=== PATIENT | female | born 1985 | race African-American/Black ===

== ENCOUNTER 2020-01-27 19:05 | Emergency (ER) | payer OTHER, SELFPAY ==
--- NOTE | ~2020-01-27 | XR_ITS ---
EXAMINATION: XR toe 5th LT min 2V DATE: 01/27/2020 19:27 INDICATION: Left fifth toe pain post injury 3 weeks prior. TECHNIQUE: Dorsal plantar, lateral and 2 oblique views of the left fifth were obtained. COMPARISON: None FINDINGS: Nondisplaced transverse fracture across a small sesamoid bone plantar to the head of the fifth metata rsal. Bone alignment is otherwise normal. No other fractures identified. Joint spaces are normal. IMPRESSION: Nondisplaced transverse fracture across the fifth metatarsal sesamoid. Reviewed, dictated and finalized at [facility]. TECHNICIAN IMPRESSION: Nondisplaced transverse fracture across the fifth metatarsal sesamo id.
[2020-01-27 19:16] VITALS: BP 120/68; PULSE 84; RESP 16; TEMP 37.3; O2SAT 99
--- NOTE | 2020-01-27 19:20 | ED.GENADULT ---
HPI - General Adult General Chief complaint: Extremity Injury, Lower Stated complaint: left pinky toe injury Time Seen by Provider: 01/27/20 19:21 Source: patient Mode of arrival: ambulatory Limitations: no limitations History of Present Illness HPI narrative: 34-year-old female patient presents to the [facility] with complaints of left pinky toe pain x3 weeks. Patient states that she has stubbed it twice about 3 weeks ago. Patient states that the pain continues to worsen and states that most of the pain is and at the base of the pinky toe. Patient states she has been able to walk on it but when she went to go and try to put a boot on today she was having too much pain and was not able to put the boot on. Patient states she had a little bit of swelling to the area when it first happened but she has been taking Tylenol for the pain. Related Data Home Medications Medication Instructions Recorded Confirmed aripiprazole mg 01/27/20 Allergies Allergy/AdvReac Type Severity Reaction Status Date / Time No Known Allergies Allergy Unknown Verified 06/16/18 18:18 Review of Systems Review of Systems: Narrative: CONSTITUTIONAL: Denies fever, chills, or sweats. EYES: Denies visual changes, redness, or discharge. ENT: Denies rhinorrhea, congestion, sore throat, or otalgia. CARDIOVASCULAR: Denies chest pain, palpitations, or edema. RESPIRATORY: Denies cough or dyspnea. GASTROINTESTINAL: Denies abdominal pain, nausea, vomiting, or diarrhea. GENITOURINARY: Denies dysuria or hematuria. SKIN: Denies rash or itching. MUSCULOSKELETAL: Denies back pain, joint pain, or myalgia. Positive left pinky toe pain NEUROLOGIC: Denies headache, numbness, or weakness. PSYCHIATRIC: Denies anxiety or depression. [facility] Past Medical History Medical History (Updated 01/27/20 @ 19:50 by ABBE Watters) Asthma Cardiac disorder Leaky valve Pulmonary embolism Surgical History Surgical History (Updated 01/27/20 @ 19:22 by ABBE Watters) Delivery by section H/O inguinal hernia repair Comments At the time of my signature I agree with nursing past medical history, surgical, social, and family history. There is no relevant family history pertinent to the presenting complaint. Exam Narrative: Exam Narrative: GENERAL: Well-appearing, well-nourished, and in no acute distress. HEAD: Normocephalic, atraumatic. EYES: PERRLA and EOMI. ENT: Nares clear, no rhinorrhea or epistaxis. Mucous membranes moist. NECK: Supple. No lymphadenopathy CHEST: Clear to auscultation. No respiratory distress. HEART: Regular rate and rhythm. No murmur heard. Normal peripheral pulses. ABDOMEN: Soft, nontender, nondistended, normal active bowel sounds. EXTREMITIES: Patient able to bear weight and ambulate without pain. No surface trauma, ecchymosis, erythema, lesions, ulcers or break in skin integrity. The L foot is without obvious asymmetry or deformity when compared to the R foot. No bony step-off, tender to palpation over the left fifth toe, no pain on palpation to the midfoot or hindfoot or sole. Normal plantar/dorsiflexion, inversion/eversion. Distal motor and neurovascular status are intact SKIN: Warm, dry, no rash. NEURO: No focal deficits. Alert and oriented x3. Course Reevaluation(s) Reevaluation #1: Reevaluated patient after x-ray resulted. Discussed with her that does appear that she has a little bit of a fracture to the left pinky toe. Discussed with her we will go ahead and fit her for a postop shoe and refer her to Ortho for further follow-up. Advised him to ice it, elevate it and trying keep off it is much as possible may take Tylenol and ibuprofen as needed for pain. Patient verbalized understanding of this denies any other questions or concerns at this time. Date: 01/27/20 Time: 19:52 Vital Signs Vital signs: Vital Signs Temperature 37.3 C 01/27/20 19:16 Pulse Rate 84 01/27/20 19:16 Respiratory Rate 16 01/27/20 19:16 Blood
== END 2020-01-27 20:03 | disposition home or self-care (01) ==
PROVIDERS: Emergency Provider Nurse Practitioner Family
DX: S92.355A Nondisplaced fracture of fifth metatarsal bone, left foot, initial encounter for closed fracture (principal); W22.8XXA Striking against or struck by other objects, initial encounter; J45.909 Unspecified asthma, uncomplicated; Z86.711 Personal history of pulmonary embolism
CPT/HCPCS: 73660; 99214; G0463

== ENCOUNTER 2021-08-24 09:52 | Emergency (ER) | payer OTHER, SELFPAY ==
--- NOTE | ~2021-08-24 | XR_ITS ---
XR abdomen/kub 1V 08/24/2021 10:28 INDICATION: Possible kidney stones TECHNIQUE: KUB COMPARISON: None FINDINGS: Bowel gas pattern is normal. There is no evidence of free air, mass, organomegaly, ascites or obstruction. No abnormal calculi are seen. The bones appear intact. IMPRESSION: 1: No acute abdominal abnormality identified. Reviewed, dictated and finalized at location A.
[2021-08-24 10:01] VITALS: BP 131/86; PULSE 74; RESP 18; TEMP 36.6; O2SAT 100
--- NOTE | 2021-08-24 10:10 | ED.FEMALEGU ---
HPI - Female Genitourinary General Chief complaint: Urogenital-Female Stated complaint: UTI Time Seen by Provider: 08/24/21 10:10 Source: patient Mode of arrival: ambulatory Limitations: no limitations History of Present Illness HPI Narrative: 36-year-old female presents with complaint of urinary frequency, urgency, dysuria, low back pain, suprapubic pain for 2 days. Denies fever or chills. States that she did feel nauseated this morning. States her period just ended. No history of kidney stones. Has been drinking a lot of water since symptoms started. Is concerned that she has urinary tract infection. All systems reviewed and negative except as noted above. Related Data Home Medications Medication Instructions Recorded Confirmed albuterol sulfate 90 mcg/actuation 90 mcg inhalation DIRECTED 08/24/21 08/24/21 aerosol inhaler Allergies Allergy/AdvReac Type Severity Reaction Status Date / Time No Known Allergies Allergy Unknown Verified 06/16/18 18:18 Review of Systems Review of Systems: CONSTITUTIONAL: Denies fever, chills, or sweats. EYES: Denies visual changes, redness, or discharge. ENT: Denies rhinorrhea, congestion, sore throat, or otalgia. CARDIOVASCULAR: Denies chest pain, palpitations, or edema. RESPIRATORY: Denies cough or dyspnea. GASTROINTESTINAL: Denies abdominal pain, nausea, vomiting, or diarrhea. GENITOURINARY: Reports dysuria, frequency, urgency, low back pain, suprapubic pain. Denies hematuria. SKIN: Denies rash or itching. MUSCULOSKELETAL: Denies back pain, joint pain, or myalgia. NEUROLOGIC: Denies headache, numbness, or weakness. PSYCHIATRIC: Denies anxiety or depression. All other systems reviewed are negative, except as documented in HPI. [facility] Past Medical History Medical History (Updated 08/24/21 @ 10:38 by Estrella Cortez NP) Asthma Cardiac disorder Leaky valve Pulmonary embolism Surgical History Surgical History (Updated 01/27/20 @ 19:22 by ABBE Watters) Delivery by section H/O inguinal hernia repair Comments At time of signature, agree with nursing past medical, surgical, social and family history. There is no relevant family history pertinent to the presenting complaint. Exam Narrative: GENERAL: This is a well-nourished, well-developed patient, in no apparent distress. HEAD: normocephalic, atraumatic. EYES: PERRL. Sclera clear/white. Vision is grossly intact. EARS: External ears normal NOSE: External nose normal NECK: Neck supple, non-tender without lymphadenopathy, masses or thyromegaly. CARDIOVASCULAR: Regular rate and rhythm without murmurs, gallops, or rubs. RESPIRATORY: Clear to auscultation. Breath sounds equal bilaterally. No wheezes, rales, or rhonchi. GASTROINTESTINAL: Abdomen soft, non-tender, nondistended. Bowel sounds are active. No hepato-splenomegaly, or palpable masses. No guarding. SKIN: warm, Dry, intact with no suspicious lesions or rash, good texture and turgor. NEURO: awake, alert, and oriented to person, place and time. There were no obvious focal neurologic abnormalities. EXTREMITIES: No joint tenderness, effusion, or edema noted. BACK: No CVA tenderness. Course Course Level of Care: Express Care Visit Vital Signs Vital signs: Vital Signs Temperature 36.6 C 08/24/21 10:01 Pulse Rate 74 08/24/21 10:01 Respiratory Rate 18 08/24/21 10:01 Blood Pressure 131/86 08/24/21 10:01 Pulse Oximetry 100 08/24/21 10:01 Oxygen Delivery Room Air 08/24/21 10:01 Temperature 36.6 C 08/24/21 10:01 Pulse Rate 74 08/24/21 10:01 Respiratory Rate 18 08/24/21 10:01 Blood Pressure 131/86 08/24/21 10:01 Pulse Oximetry 100 08/24/21 10:01 Oxygen Delivery Room Air 08/24/21 10:01 Reviewed MDM - Female Genitourinary MDM Narrative Medical decision making narrative: Patient is aware of diagnosis, understands and agrees to treatment plan. Anticipatory guidance given. Patient agrees to fo
== END 2021-08-24 10:46 | disposition home or self-care (01) ==
PROVIDERS: Emergency Provider Nurse Practitioner Family
DX: N39.0 Urinary tract infection, site not specified (principal); J45.909 Unspecified asthma, uncomplicated; Z86.711 Personal history of pulmonary embolism
CPT/HCPCS: 74018; 81003; 81025; 87086; 87088; 87147; 99213; G0463

== ENCOUNTER 2021-11-07 13:40 | Emergency (ER) | payer OTHER, SELFPAY ==
--- NOTE | ~2021-11-07 | XR_ITS ---
XR ankle RT min 3V DATE: 11/07/2021 13:59 INDICATION: Patient fell and twisted right ankle. Swelling. TECHNIQUE: 4 views COMPARISON: None FINDINGS: There is mild to moderate lateral soft tissue swelling. No fracture or dislocation of the a nkle or disruption of the ankle mortise is detected. No periosteal reaction or bone destruction. IMPRESSION: Mild to moderate lateral soft tissue swelling Reviewed, dictated and finalized at location B.
[2021-11-07 13:50] VITALS: BP 126/76; PULSE 79; RESP 16; TEMP 37.4; O2SAT 100
--- NOTE | 2021-11-07 13:59 | ED.LOWEXIN ---
HPI - Extremity Injury (Lower) General Chief Complaint: Extremity Injury, Lower Stated Complaint: Injury to right ankle Time Seen by Provider: 11/07/21 14:00 Source: patient, RN notes reviewed and old records reviewed Mode of arrival: ambulatory Limitations: no limitations History of Present Illness HPI Narrative: 36-year-old female presents to the [facility] with complaints of right ankle pain. States 2 nights ago she rolled her ankle. Minor swelling noted laterally. Positive pedal pulse. Sensation intact in all 5 toes. Good range of motion with some discomfort. Related Data Allergies Allergy/AdvReac Type Severity Reaction Status Date / Time No Known Allergies Allergy Unknown Verified 11/07/21 13:50 Review of Systems Review of Systems: All systems reviewed & are unremarkable except as noted in HPI and below Constitutional: Constitutional: Reports no additional constitutional complaints, Denies chills and Denies fever(s) Eyes: Eyes: Reports no additional eye complaints ENT: Reports system reviewed and no additional complaints, except as documented Cardiovascular: Cardiovascular: Reports no additional cardiovascular complaints Respiratory: Respiratory: Reports no additional respiratory complaints Gastrointestinal: Gastrointestinal: Reports no additional gastrointestinal complaints Musculoskeletal: Musculoskeletal: Reports as per HPI, Reports arthralgias and Reports joint swelling Integumentary/Breasts: Skin/Breast: Reports system reviewed and no additional complaints, except as docu Neurologic: Reports system reviewed and no additional complaints, except as documented Psychiatric: Psychiatric: Reports no additional psychiatric complaints Allergic/Immunologic: Allergic/Immunologic: Reports no additional allergic/immunologic complaints [facility] Past Medical History Medical History Asthma Cardiac disorder Leaky valve Pulmonary embolism Surgical History Surgical History Delivery by section H/O inguinal hernia repair Comments At the time of my signature, I reviewed and agree with the nursing past medical, surgical, social, and family history. There is no relevant family history pertinent to the patient complaint. Exam Const: General: healthy appearing, no acute distress and alert Nutritional Appearance: well nourished Orientation/consciousness: patient oriented x3 Limitations: no limitations HENMT: Head: normal to inspection Ears: external ears normal Eyes: General: appearance normal, both eyes and all related structures Pupils: Equal, round and reactive pupils present Neck: Neck: normal visual inspection, no lymphadenopathy and no meningeal signs Chest: Chest palpation & inspection: normal inspection of the chest Resp: Effort & Inspection: normal respiratory effort and no use of accessory muscles Auscultation: clear to auscultation bilaterally, no crackles, no rales, no rhonchi and no wheezes Cardio: Rate: regular rate Rhythm: regular rhythm GI: GI Palp: Yes Soft to palpation and No Tenderness to palpation present (GI) Back/Spine/Pelvis: Cervical Spine: normal cervical lordosis Thoracic/Lumbar Spine: thoracic and lumbar spine normal to inspection Skin: General skin exam: normal color Rashes: no rashes Wounds: no wounds Neuro: General: patient oriented x3, moves all extremities, no meningeal signs and no focal motor deficits Cranial nerves: Yes Equal, round and reactive pupils present Speech: normal speech Gait exam (Neuro): Normal gait present Extrem: General: normal to inspection, full ROM and capillary refill normal Right lower extremity: ankle Details: tenderness Location: of the lateral malleolus, swelling Details: laterally and normal ROM; no unusual warmth, no abrasions, no lacerations and no ecchymosis Psych: Appearance: grossly normal and well kempt Mental Stat
[2021-11-07 14:08] VITALS: BP 126/76; PULSE 79; RESP 16; TEMP 37.4; O2SAT 100
== END 2021-11-07 14:23 | disposition home or self-care (01) ==
PROVIDERS: Emergency Provider Nurse Practitioner
DX: S96.911A Strain of unspecified muscle and tendon at ankle and foot level, right foot, initial encounter (principal); X50.9XXA Other and unspecified overexertion or strenuous movements or postures, initial encounter; J45.909 Unspecified asthma, uncomplicated; Z86.711 Personal history of pulmonary embolism
CPT/HCPCS: 73610; 99213; G0463

== ENCOUNTER 2022-07-01 09:02 | Emergency (ER) | payer BC, OTHER, SELFPAY ==
[2022-07-01 09:16] VITALS: BP 125/75; PULSE 80; RESP 16; TEMP 37.2; O2SAT 99
--- NOTE | 2022-07-01 09:35 | ED.SKABFB ---
HPI - Skin/Abscess/Foreign Bdy General Chief complaint: Skin/Abscess/Foreign Body Stated complaint: left 3rd finger infected Time Seen by Provider: 07/01/22 09:35 Source: patient Mode of arrival: ambulatory Limitations: no limitations History of Present Illness HPI narrative: 36-year-old female presents with complaint pain, swelling and redness to left middle finger for the past 2 days. Reports that she stuck herself with a tool that she uses for dreadlocks. States that the tool looks like a sangeeta needle. 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 Redness pain getting progressively worse. Afebrile. Full range of motion and distal neurovascularly intact. All systems reviewed and negative except as noted above. Related Data Allergies Allergy/AdvReac Type Severity Reaction Status Date / Time No Known Allergies Allergy Unknown Verified 07/01/22 09:19 Review of Systems Review of Systems: CONSTITUTIONAL: Denies fever, chills, or sweats. EYES: Denies visual changes, redness, or discharge. ENT: Denies rhinorrhea, congestion, sore throat, or otalgia. CARDIOVASCULAR: Denies chest pain, palpitations, or edema. RESPIRATORY: Denies cough or dyspnea. GASTROINTESTINAL: Denies abdominal pain, nausea, vomiting, or diarrhea. GENITOURINARY: Denies dysuria or hematuria. SKIN: Denies rash or itching. Reports pain, swelling and redness to left middle finger. MUSCULOSKELETAL: Denies back pain, joint pain, or myalgia. NEUROLOGIC: Denies headache, numbness, or weakness. PSYCHIATRIC: Denies anxiety or depression. All other systems reviewed are negative, except as documented in HPI. [facility] Past Medical History Medical History Asthma Cardiac disorder Leaky valve Pulmonary embolism Surgical History Surgical History Delivery by section H/O inguinal hernia repair Comments At time of signature, agree with nursing past medical, surgical, social and family history. There is no relevant family history pertinent to the presenting complaint. Exam Narrative: GENERAL: This is a well-nourished, well-developed patient, in no apparent distress. HEAD: normocephalic, atraumatic. EYES: PERRL. Sclera clear/white. Vision is grossly intact. EARS: External ears normal NOSE: External nose normal NECK: Neck supple, non-tender without lymphadenopathy, masses or thyromegaly. CARDIOVASCULAR: Regular rate and rhythm without murmurs, gallops, or rubs. RESPIRATORY: Clear to auscultation. Breath sounds equal bilaterally. No wheezes, rales, or rhonchi. SKIN: warm, Dry, intact with Mild redness, swelling and tenderness to distal aspect of left middle finger. No open wound. No drainage or purulence noted. I&D not indicated. NEURO: awake, alert, and oriented to person, place and time. There were no obvious focal neurologic abnormalities. EXTREMITIES: No joint tenderness, effusion, or edema noted. Course Course Level of Care: Express Care Visit Vital Signs Vital signs: Vital Signs Temperature 37.2 C 07/01/22 09:16 Pulse Rate 80 07/01/22 09:16 Respiratory Rate 16 07/01/22 09:16 Blood Pressure 125/75 07/01/22 09:16 Pulse Oximetry 99 07/01/22 09:16 Oxygen Delivery Room Air 07/01/22 09:16 Temperature 37.2 C 07/01/22 09:16 Pulse Rate 80 07/01/22 09:16 Respiratory Rate 16 07/01/22 09:16 Blood Pressure 125/75 07/01/22 09:16 Pulse Oximetry 99 07/01/22 09:16 Oxygen Delivery Room Air 07/01/22 09:16 Reviewed MDM - Skin/Abscess/Foreign Bdy MDM Narrative Medical decision making narrative: Patient is aware of diagnosis, understands and agrees to treatment plan. Anticipatory guidance given. Patient agrees to follow-up as directed and is aware of reasons to seek care at the emergency department. Portions of this record may have been created with voice recognition software [employer]
== END 2022-07-01 09:51 | disposition home or self-care (01) ==
PROVIDERS: Emergency Provider Nurse Practitioner Family
DX: L03.012 Cellulitis of left finger (principal); J45.909 Unspecified asthma, uncomplicated; Z86.711 Personal history of pulmonary embolism; I38 Endocarditis, valve unspecified
CPT/HCPCS: 99213; G0463